=== PATIENT | male | born 1985 | race Caucasian/White ===

== ENCOUNTER 2023-07-04 22:46 | Emergency (ER) | payer BC ==
[2023-07-04 22:57] VITALS: BP 152/86; PULSE 83; RESP 18; TEMP 98; BMI 37.3
[2023-07-04] MEDS ORDERED: DIPHTH,PERTUSS(ACELL),TET 0.5 ML DISP.SYRIN IM ONE (23:15)
[2023-07-04] MEDS: DIPHTH,PERTUSS(ACELL),TET 0.5 ML DISP.SYRIN IM ONE (23:17)
== END 2023-07-04 23:18 | disposition home or self-care (01) ==
LOC: JER 22:46 → JERFT 22:46
PROC: 3E0234Z Introduction of Serum, Toxoid and Vaccine into Muscle, Percutaneous Approach (ICD-10-PCS; principal; 2023-07-04)
DX: S61.012A Laceration without foreign body of left thumb without damage to nail, initial encounter (principal); W26.0XXA Contact with knife, initial encounter
CPT/HCPCS: 90715; 99284-25